=== PATIENT | female | born 1980 | race Caucasian/White ===

== ENCOUNTER 2021-05-13 06:00 | Inpatient (IN) | payer OTHER ==
[~2021-05-13] VITALS: Ht 160 cm; Wt 90.3 kg
[2021-05-13 06:35] LABS: BILIRUBIN NEGATIVE (NEGATIVE); BLOOD NEGATIVE Ery/uL (NEGATIVE); CLARITY CLEAR (CLEAR); COLOR YELLOW (YELLOW); GLUCOSE (U) NORMAL (NORMAL); LEUKOCYTES 1+ Leu/uL (NEGATIVE); NITRITE NEGATIVE (NEGATIVE); PROTEIN NEGATIVE (NEGATIVE); SPECIFIC GRAVITY 1.025 (1.001-1.030); pH 6.5 (5.0-9.0)
[2021-05-13 06:46] LABS: BACTERIA 2+; SQUAMOUS EPITHELIAL CELLS >50
[2021-05-13 07:08] LABS: HCT 36.8 % (37.0-47.0); HGB 12.3 g/dl (12.5-16.0); MCH 30.6 pg (25.0-31.0); MCHC 33.4 g/dL (32.0-36.0); MCV 91.5 fL (78.0-100.0); RBC 4.02 M/uL (4.20-5.40); RDW 13.5 % (11.5-14.0); WBC 11.6 K/uL (4.0-10.5)
[2021-05-13 07:17] LABS: AMPHETAMINES NEGATIVE (NEGATIVE); BARBITURATES NEGATIVE (NEGATIVE); ECSTASY (MDMA) NEGATIVE (NEGATIVE); MARIJUANA (THC) NEGATIVE (NEGATIVE); METHADONE NEGATIVE (NEGATIVE); OPIATES NEGATIVE (NEGATIVE); OXYCODONE NEGATIVE (NEGATIVE)
[2021-05-14 06:30] LABS: HCT 35.6 % (37.0-47.0); HGB 12.1 g/dl (12.5-16.0); MCH 31.3 pg (25.0-31.0); MPV 10.7 fL (6.0-9.5); RBC 3.87 M/uL (4.20-5.40); RDW 13.6 % (11.5-14.0); WBC 13.1 K/uL (4.0-10.5)
[2021-05-15] MEDS ORDERED: SYNTHROID125 MCG PO (07:58)
[2021-05-15] MEDS ORDERED: IBUPROFEN800 MG PO (07:58)
[2021-05-15] MEDS ORDERED: PRENATAL FORMU1 EACH PO (07:59)
== END 2021-05-15 13:30 | disposition home or self-care (01) | DRG 807 ==
LOC: FOB 06:00
PROVIDERS: ADMIT Obstetrics & Gynecology
PROC: 10E0XZZ Delivery of Products of Conception, External Approach (ICD-10-PCS; principal; 2021-05-13)
PROC: 10D17Z9 Manual Extraction of Products of Conception, Retained, Via Natural or Artificial Opening (ICD-10-PCS; 2021-05-13)
DX: O99.284 Endocrine, nutritional and metabolic diseases complicating childbirth (principal); Z37.0 Single live birth; E03.9 Hypothyroidism, unspecified; Z3A.39 39 weeks gestation of pregnancy; Z20.822 Contact with and (suspected) exposure to COVID-19; O69.89X0 Labor and delivery complicated by other cord complications, not applicable or unspecified; O99.334 Smoking (tobacco) complicating childbirth; Z86.19 Personal history of other infectious and parasitic diseases; Z79.890 Hormone replacement therapy; F17.200 Nicotine dependence, unspecified, uncomplicated; Z79.82 Long term (current) use of aspirin
CPT/HCPCS: 36415; 80305; 81001; 86850; 86900; 86901; J2300; J7120; U0002